=== PATIENT | male | born 1985 | race Caucasian/White ===

== ENCOUNTER 2021-10-09 09:13 | Emergency (ER) | payer OTHER ==
[~2021-10-09] VITALS: Ht 177.8 cm; Wt 75.0 kg
[2021-10-09] MEDS ORDERED: ACETAMINOPHEN WITH CODEINE 300/30MG TABLET PO ONE (10:45)
[2021-10-09] MEDS ORDERED: KETOROLAC 15MG/ML VIAL IV ONE (10:45)
[2021-10-09 11:02] LABS: HEMATOCRIT. 37.2 % (42.0-52.0); HEMOGLOBIN. 12.3 g/dL (14.0-18.0); MEAN CORPUSCULAR HEMOGLOBIN 29.9 pg (28.0-32.0); MEAN PLATELET VOLUME 7.8 fl (7.4-10.4); PLATELET 423 x1000/uL (130-400); RED BLOOD CELL COUNT 4.13 mill/uL (4.7-6.1); RED CELL DISTRIBUTION WIDTH 15.9 % (11.6-14.6)
[2021-10-09 11:12] LABS: CHLORIDE 106 mEq/L (98-107)
[2021-10-09 11:29] LABS: PLATELET ESTIMATE SLIGHTLY INCREASED
[2021-10-09] MEDS ORDERED: PIPERACILLIN/TAZOBACTAM 3.375GM/50ML PREMIX IV ONE (12:15)
[2021-10-09] MEDS ORDERED: VANCOMYCIN 1G PREMIX 200 ML IV SCH (12:15)
[2021-10-09 14:41] VITALS: BP 149/100
== END 2021-10-09 14:48 | disposition short-term general hospital (02) ==
LOC: ER 09:13
DX: L03.115 Cellulitis of right lower limb (principal); I10 Essential (primary) hypertension; E78.00 Pure hypercholesterolemia, unspecified; Z98.890 Other specified postprocedural states; Z20.822 Contact with and (suspected) exposure to COVID-19
CPT/HCPCS: 36415; 73590; 73610; 80048; 85025; 87426; 93971; 96365; 99285; C9803; J3370

== ENCOUNTER 2021-11-24 16:03 | Emergency (ER) | payer OTHER ==
[~2021-11-24] VITALS: Ht 177.8 cm; Wt 77.0 kg
[2021-11-24 16:14] VITALS: BP 163/82
[2021-11-24] MEDS ORDERED: HYDROCODONE/ACETAMINOPHEN 5/325MG TABLET PO STA (18:48)
[2021-11-24 19:32] LABS: BASOPHILS % 1.7 % (0.0-2.0); HEMATOCRIT. 36.2 % (42.0-52.0); HEMOGLOBIN. 12.4 g/dL (14.0-18.0); LYMPHOCYTES % 25.9 % (20.0-50.0); MEAN CORPUSCULAR HEMOGLOBIN 30.3 pg (28.0-32.0); MEAN PLATELET VOLUME 8.5 fl (7.4-10.4); MONOCYTES % 10.5 % (2.0-8.0); NEUTROPHILS % 55.9 % (40.0-76.0); PLATELET 462 x1000/uL (130-400); RED BLOOD CELL COUNT 4.07 mill/uL (4.7-6.1); RED CELL DISTRIBUTION WIDTH 14.6 % (11.6-14.6)
[2021-11-24 19:40] LABS: CHLORIDE 103 mEq/L (98-107)
[2021-11-24 19:41] LABS: INR 1.1; PROTHROMBIN TIME 11.6 sec (9.6-11.0)
[2021-11-24] MEDS ORDERED: HYDR-4001 MT (20:17)
== END 2021-11-24 21:07 | disposition home or self-care (01) ==
LOC: ER 16:03
DX: M79.604 Pain in right leg (principal); E78.00 Pure hypercholesterolemia, unspecified; I10 Essential (primary) hypertension; Z98.890 Other specified postprocedural states
CPT/HCPCS: 36415; 73590; 80053; 85025; 93971; 99285

== ENCOUNTER 2022-04-10 08:25 | Emergency (ER) | payer OTHER ==
[~2022-04-10] VITALS: Ht 177.8 cm; Wt 81.0 kg
[~2022-04-10 08:25] MED LIST: HYDR-4001 MT
[2022-04-10 08:43] VITALS: BP 157/113
[2022-04-10] MEDS ORDERED: OXYCODONE HCL/ACETAMINOPHEN 5/325MG TABLET PO ONE (11:15)
[2022-04-10] MEDS ORDERED: NAP5EC PO (15:32)
== END 2022-04-10 15:54 | disposition home or self-care (01) ==
LOC: ER 08:25
DX: M79.605 Pain in left leg (principal); E78.00 Pure hypercholesterolemia, unspecified; I12.9 Hypertensive chronic kidney disease with stage 1 through stage 4 chronic kidney disease, or unspecified chronic kidney disease; N18.9 Chronic kidney disease, unspecified; K70.9 Alcoholic liver disease, unspecified; F10.20 Alcohol dependence, uncomplicated; Y90.9 Presence of alcohol in blood, level not specified
CPT/HCPCS: 93971; 99284

== ENCOUNTER 2022-07-06 14:42 | Emergency (ER) | payer OTHER ==
[~2022-07-06] VITALS: Ht 177.8 cm; Wt 79.0 kg
[~2022-07-06 14:42] MED LIST changes: +NAP5EC PO
[2022-07-06 15:10] VITALS: BP 138/100
[2022-07-06 16:47] LABS: BASOPHILS % 2.1 % (0.0-2.0); EOSINOPHILS % 13.2 % (0.0-5.0); HEMOGLOBIN. 14.1 g/dL (14.0-18.0); LYMPHOCYTES % 37.4 % (20.0-50.0); MEAN CORPUSCULAR HEMOGLOBIN 29.5 pg (28.0-32.0); MEAN CORPUSCULAR VOLUME 87.6 fL (80.0-94.0); MEAN PLATELET VOLUME 8.3 fl (7.4-10.4); MONOCYTES % 9.3 % (2.0-8.0); PLATELET 427 x1000/uL (130-400); RED BLOOD CELL COUNT 4.79 mill/uL (4.7-6.1); RED CELL DISTRIBUTION WIDTH 15.5 % (11.6-14.6)
[2022-07-06 16:55] LABS: CHLORIDE 105 mEq/L (98-107)
[2022-07-06 17:05] LABS: ETHANOL BLOOD 174 mg/dL
== END 2022-07-06 20:56 | disposition left against medical advice (07) ==
LOC: ER 14:42
DX: Z53.21 Procedure and treatment not carried out due to patient leaving prior to being seen by health care provider (principal)
CPT/HCPCS: 36415; 80053; 80320; 85025; 99281; G0480

== ENCOUNTER 2022-08-23 08:50 | Emergency (ER) | payer OTHER ==
[~2022-08-23] VITALS: Ht 177.8 cm; Wt 78.0 kg
[2022-08-23 08:57] VITALS: BP 152/109
[2022-08-23] MEDS ORDERED: VISCOUS LIDOCAINE 2% 15 ML UDC PO STA (09:14)
[2022-08-23] MEDS ORDERED: FAMOTIDINE 20MG TABLET PO ONE (09:15)
[2022-08-23] MEDS ORDERED: MAGNESIUM/ALUMINUM HYDROXIDE/SIMETHICONE 30ML UDC PO ONE (09:15)
[2022-08-23] MEDS ORDERED: ONDANSETRON 4MG ODT PO ONE (09:15)
[2022-08-23 09:28] LABS: HEMATOCRIT. 38.5 % (42.0-52.0); HEMOGLOBIN. 13.1 g/dL (14.0-18.0); MEAN CORPUSCULAR HEMOGLOBIN 29.7 pg (28.0-32.0); MEAN CORPUSCULAR VOLUME 87.2 fL (80.0-94.0); MEAN PLATELET VOLUME 7.8 fl (7.4-10.4); PLATELET 426 x1000/uL (130-400); RED BLOOD CELL COUNT 4.41 mill/uL (4.7-6.1); RED CELL DISTRIBUTION WIDTH 16.2 % (11.6-14.6)
[2022-08-23 09:37] LABS: CHLORIDE 105 mEq/L (98-107)
[2022-08-23 09:46] LABS: ETHANOL BLOOD 35 mg/dL
[2022-08-23 10:33] LABS: PLATELET ESTIMATE INCREASED
== END 2022-08-23 12:09 | disposition left against medical advice (07) ==
LOC: ER 08:50
DX: F10.10 Alcohol abuse, uncomplicated (principal); F15.10 Other stimulant abuse, uncomplicated; I10 Essential (primary) hypertension; Z98.890 Other specified postprocedural states; Y90.1 Blood alcohol level of 20-39 mg/100 ml
CPT/HCPCS: 36415; 80053; 80320; 85025; 93005; 99284; G0480

== ENCOUNTER 2023-05-14 15:14 | Emergency (ER) | payer OTHER ==
[~2023-05-14] VITALS: Ht 172.7 cm; Wt 68.0 kg
[2023-05-14 15:31] VITALS: BP 125/92; RESP 20; TEMP 98.5; O2SAT 98
[2023-05-14 15:49] VITALS: PULSE 112
[2023-05-14 18:04] LABS: BASOPHILS % 2.3 % (0.0-2.0); EOSINOPHILS % 10.1 % (0.0-5.0); HEMATOCRIT. 36.1 % (42.0-52.0); HEMOGLOBIN. 11.8 g/dL (14.0-18.0); LYMPHOCYTES % 43.4 % (20.0-50.0); MEAN CORPUSCULAR HEMOGLOBIN 29.5 pg (28.0-32.0); MEAN CORPUSCULAR HGB CONC 32.6 g/dL (31.0-37.0); MEAN CORPUSCULAR VOLUME 90.5 fL (80.0-94.0); MEAN PLATELET VOLUME 8.6 fl (7.4-10.4); MONOCYTES % 8.3 % (2.0-8.0); NEUTROPHILS % 35.9 % (40.0-76.0); PLATELET 344 x1000/uL (130-400); RED BLOOD CELL COUNT 3.99 mill/uL (4.7-6.1); RED CELL DISTRIBUTION WIDTH 16.1 % (11.6-14.6); WHITE BLOOD COUNT 7.4 x1000/uL (4.5-11.0)
[2023-05-14 18:13] LABS: ALANINE AMINOTRANSFERASE 123 IU/L (10-49); ALBUMIN 4.6 g/dL (3.2-4.8); ASPARTATE AMINOTRANSFERASE 227 IU/L (<34); BILIRUBIN TOTAL 0.5 mg/dL (0.1-1.0); CALCIUM 8.9 mg/dL (8.7-10.4); CARBON DIOXIDE 21 mEq/L (21-32); CHLORIDE 109 mEq/L (98-107); ETHANOL BLOOD 219 mg/dL (<10); GLUCOSE 100 mg/dL (70-105); POTASSIUM 3.5 mEq/L (3.5-5.1); PROTEIN TOTAL 8.7 g/dL (6.0-8.3); SODIUM 141 mEq/L (136-145); UREA NITROGEN BLOOD 8 mg/dL (9-23)
== END 2023-05-14 18:55 | disposition left against medical advice (07) ==
LOC: ER 15:14
DX: F10.230 Alcohol dependence with withdrawal, uncomplicated (principal); Z53.21 Procedure and treatment not carried out due to patient leaving prior to being seen by health care provider
CPT/HCPCS: 36415; 80053; 80320; 85025; 99281; G0480

== ENCOUNTER 2023-07-01 11:18 | Emergency (ER) | payer OTHER ==
[~2023-07-01] VITALS: Ht 172.7 cm; Wt 68.0 kg
[2023-07-01 11:28] VITALS: BP 133/91; RESP 20; TEMP 98.3; O2SAT 100
[2023-07-01 11:30] VITALS: PULSE 88
[2023-07-01] MEDS: IBUPROFEN 600MG TABLET PO ONE (12:41)
== END 2023-07-01 12:45 | disposition home or self-care (01) ==
LOC: ER 12:05
DX: S01.81XD Laceration without foreign body of other part of head, subsequent encounter (principal); I10 Essential (primary) hypertension; E11.9 Type 2 diabetes mellitus without complications; F15.10 Other stimulant abuse, uncomplicated; Z48.00 Encounter for change or removal of nonsurgical wound dressing; Z98.890 Other specified postprocedural states; X58.XXXD Exposure to other specified factors, subsequent encounter
CPT/HCPCS: 99281

== ENCOUNTER 2023-08-13 14:11 | Emergency (ER) | payer OTHER ==
[~2023-08-13] VITALS: Ht 175.3 cm; Wt 81.0 kg
[~2023-08-13 14:11] MED LIST changes: +PROT40 MT; +THIA100T72 MT
[2023-08-13 14:20] VITALS: O2SAT 100
[2023-08-13 16:14] LABS: HEMATOCRIT. 34.6 % (42.0-52.0); HEMOGLOBIN. 11.5 g/dL (14.0-18.0); MEAN CORPUSCULAR HEMOGLOBIN 29.8 pg (28.0-32.0); MEAN CORPUSCULAR HGB CONC 33.3 g/dL (31.0-37.0); MEAN CORPUSCULAR VOLUME 89.6 fL (80.0-94.0); MEAN PLATELET VOLUME 8.9 fl (7.4-10.4); PLATELET 193 x1000/uL (130-400); RED BLOOD CELL COUNT 3.87 mill/uL (4.7-6.1); RED CELL DISTRIBUTION WIDTH 20.3 % (11.6-14.6); WHITE BLOOD COUNT 11.5 x1000/uL (4.5-11.0)
[2023-08-13 16:16] LABS: DIFFERENTIAL COMMENT 1
[2023-08-13 16:25] LABS: CARBON DIOXIDE 21 mEq/L (21-32); CHLORIDE 105 mEq/L (98-107); POTASSIUM 3.1 mEq/L (3.5-5.1); SODIUM 136 mEq/L (136-145)
[2023-08-13 16:26] LABS: CALCIUM 9.6 mg/dL (8.7-10.4)
[2023-08-13 16:31] LABS: ETHANOL BLOOD 155 mg/dL (<10); GLUCOSE 94 mg/dL (70-105); UREA NITROGEN BLOOD 7 mg/dL (9-23)
[2023-08-13 16:32] LABS: ALANINE AMINOTRANSFERASE 46 IU/L (10-49); ALBUMIN 4.1 g/dL (3.2-4.8); ASPARTATE AMINOTRANSFERASE 147 IU/L (<34)
[2023-08-13 16:33] LABS: BILIRUBIN TOTAL 3.3 mg/dL (0.1-1.0); PROTEIN TOTAL 8.2 g/dL (6.0-8.3)
[2023-08-13] MEDS: SODIUM CHLORIDE 0.9% 1,000 ML IV ONE (17:15)
[2023-08-13 18:23] LABS: PLATELET ESTIMATE NORMAL
[2023-08-13 18:25] LABS: ANISOCYTOSIS 2+
[2023-08-13 18:50] VITALS: BP 127/92; PULSE 91; RESP 18; TEMP 98.3
== END 2023-08-13 19:28 | disposition short-term general hospital (02) ==
LOC: ER 14:11 → CANBEDREQ 19:39
DX: K74.69 Other cirrhosis of liver (principal); E11.9 Type 2 diabetes mellitus without complications; I10 Essential (primary) hypertension
CPT/HCPCS: 80053; 80320; 83690; 85025; 36415; 76705; 99285; J7030; G0480

== ENCOUNTER 2023-10-17 21:23 | Emergency (ER) | payer OTHER ==
[~2023-10-17] VITALS: Ht 177.8 cm; Wt 76.2 kg
[2023-10-17 21:44] VITALS: O2SAT 99
[2023-10-17 22:49] LABS: HEMATOCRIT 33.1 % (42.0-52.0); HEMOGLOBIN 11.1 g/dL (14.0-18.0); MEAN CORPUSCULAR HEMOGLOBIN 29.9 pg (28.0-32.0); MEAN CORPUSCULAR HGB CONC 33.4 g/dL (31.0-37.0); MEAN CORPUSCULAR VOLUME 89.6 fL (80.0-94.0); PLATELET 202 x1000/uL (130-400); RED CELL DISTRIBUTION WIDTH 18.4 % (11.6-14.6); WHITE BLOOD COUNT 10.9 x1000/uL (4.5-11.0)
[2023-10-17 22:50] LABS: CHLORIDE 107 mEq/L (98-107); POTASSIUM 3.2 mEq/L (3.5-5.1); SODIUM 141 mEq/L (136-145)
[2023-10-17 22:51] LABS: CALCIUM 9.2 mg/dL (8.7-10.4); CARBON DIOXIDE 24 mEq/L (21-32)
[2023-10-17 22:56] LABS: CREATININE 0.8 mg/dL (0.6-1.3); GLUCOSE 107 mg/dL (70-105)
[2023-10-17 22:58] LABS: ALANINE AMINOTRANSFERASE 69 IU/L (10-49); ASPARTATE AMINOTRANSFERASE 231 IU/L (<34); BILIRUBIN DIRECT 1.8 mg/dL (<=3.0); BILIRUBIN TOTAL 2.6 mg/dL (0.1-1.0); PROTEIN TOTAL 7.6 g/dL (6.0-8.3)
[2023-10-17 23:01] LABS: UREA NITROGEN BLOOD < 5 mg/dL (9-23)
[2023-10-17] MEDS ORDERED: IBUP-2029 MT (23:28)
[2023-10-17 23:34] VITALS: BP 126/80; PULSE 78; RESP 18; TEMP 98.9
== END 2023-10-17 23:39 | disposition home or self-care (01) ==
LOC: ER 21:23
DX: F10.20 Alcohol dependence, uncomplicated (principal); E11.9 Type 2 diabetes mellitus without complications; E78.00 Pure hypercholesterolemia, unspecified; F15.10 Other stimulant abuse, uncomplicated; Z79.899 Other long term (current) drug therapy; Y90.9 Presence of alcohol in blood, level not specified
CPT/HCPCS: 36415; 80053; 80076; 85027; 99283

== ENCOUNTER 2023-10-22 11:31 | Emergency (ER) | payer MEDICAID, OTHER ==
[~2023-10-22] VITALS: Ht 177.8 cm; Wt 73.0 kg
[~2023-10-22 11:31] MED LIST changes: +IBUP-2029 MT
[2023-10-22 11:43] VITALS: BP 133/88; PULSE 82; RESP 18; TEMP 97.9; O2SAT 98
== END 2023-10-22 15:42 | disposition left against medical advice (07) ==
LOC: ER 11:31
DX: S00.83XA Contusion of other part of head, initial encounter (principal); F10.20 Alcohol dependence, uncomplicated; E11.9 Type 2 diabetes mellitus without complications; E78.00 Pure hypercholesterolemia, unspecified; I10 Essential (primary) hypertension; F15.90 Other stimulant use, unspecified, uncomplicated; Z98.890 Other specified postprocedural states; W01.0XXA Fall on same level from slipping, tripping and stumbling without subsequent striking against object, initial encounter; Y93.89 Activity, other specified; Y92.89 Other specified places as the place of occurrence of the external cause; Y99.8 Other external cause status
CPT/HCPCS: 71046; 99283

== ENCOUNTER 2023-11-17 10:16 | Emergency (ER) | payer MEDICAID ==
[~2023-11-17] VITALS: Ht 177.8 cm; Wt 76.0 kg
[2023-11-17 10:20] VITALS: BP 126/85; PULSE 105; RESP 18; TEMP 98.3; O2SAT 99
== END 2023-11-17 12:18 | disposition left against medical advice (07) ==
LOC: ER 10:16
DX: M79.89 Other specified soft tissue disorders (principal); Z53.21 Procedure and treatment not carried out due to patient leaving prior to being seen by health care provider